=== PATIENT | male | born 1995 | race Caucasian/White ===

== ENCOUNTER 2025-10-07 15:23 | Emergency (ER) | payer BC ==
[~2025-10-07] VITALS: Ht 175.3 cm; Wt 57.2 kg
[2025-10-07] MEDS ORDERED: PHENAZOPYRIDINE HCL 200 MG TABLET ONE (16:02)
[2025-10-07 16:03] LABS: APPEARANCE,URINE SLIGHTLY CLOUDY (CLEAR); BLOOD, URINE 3+ Ery/uL (NEGATIVE); LEUKOCYTE ESTERASE ,URINE NEGATIVE (NEGATIVE); NITRITE, URINE NEGATIVE (NEGATIVE); UGLUCOSE NEGATIVE (NEGATIVE)
[2025-10-07] MEDS: PHENAZOPYRIDINE HCL 200 MG TABLET PO ONE (16:03)
[2025-10-07 16:05] LABS: PLATELET COUNT (AUTO) 156 K/uL (150-450); RED BLOOD CELL COUNT(AUTO) 5.22 MIL/uL (4.5-6.0); RED CELL DISTRIBUTION WIDTH 13.8 % (11.5-15.0); WHITE BLOOD COUNT (AUTO) 4.1 K/uL (4.3-11.0)
[2025-10-07 16:13] LABS: CALCIUM, SERUM 8.8 mg/dL (8.5-10.1); CREATININE 1.1 mg/dL (0.6-1.3); SODIUM SERUM 140.0 mmol/L (136-145); UREA NITROGEN, BLOOD 12.0 mg/dL (7-18)
[2025-10-07 16:19] LABS: ASPARTATE AMINOTRANSFERASE 29.0 U/L (15-37); TOTAL PROTEIN, SERUM 8.2 g/dL (6.4-8.2)
[2025-10-07 16:33] LABS: ADD URINE CULTURE YES; SQUAMOUS EPITHELIAL CELL,UR Few /HPF (None Seen)
[2025-10-07] MEDS ORDERED: CEFP200T14 PO (16:48)
[2025-10-07] MEDS ORDERED: PHEN-705 PO (16:48)
[2025-10-07] MEDS ORDERED: CEFTRIAXONE 1 G VIAL IM ONE (17:00)
[2025-10-07] MEDS ORDERED: CEFTRIAXONE 1GM BAG (ER ONLY) 50 ML IV ONE (17:12)
[2025-10-07] MEDS ORDERED: CIPR500T5 PO (17:15)
[2025-10-07] MEDS: CEFTRIAXONE 1 G in IV D5W 50 ML IV ONE (17:20)
[2025-10-07 17:46] VITALS: BP 120/88; TEMP 98.6; O2SAT 99
[2025-10-10 07:09] LABS: CHLAMYDIA TRACHOMATIS NAA Negative (Negative); NEISSERIA GONORRHOEAE NAA Negative (Negative)
== END 2025-10-07 17:47 | disposition home or self-care (01) ==
LOC: ER 15:23
DX: N30.01 Acute cystitis with hematuria (principal)
CPT/HCPCS: 99284; 96365; 85025; 87086; 81001; 36415; 80053; 87491; 87591; J0696 ×2; J7060